=== PATIENT | female | born 1960 | race Hispanic/Latino ===

== ENCOUNTER 2018-02-06 10:39 | Day surgery (SDC) | payer OTHER ==
[2018-02-05 08:24] VITALS: BMI 38.4
[~2018-02-06 10:39] MED LIST: Cyclopentolate 1% Opth Drop 2 ML BOT FS SCH; EPINEPHrine 0.3 MG, Dextrose 50% 3 ML in Ophthalmic Irrigation Solution 500 ML FS SCH; Phenylephrine 2.5% Ophth Soln 5 ML BOT FS SCH
[2018-02-06] MEDS ORDERED: Phenylephrine 2.5% Ophth Soln 5 ML BOT ONE (10:59)
[2018-02-06] MEDS ORDERED: Cyclopentolate 1% Opth Drop 2 ML BOT ONE (10:59)
[2018-02-06] MEDS ORDERED: Lidocaine 4% PF 5 ML AMP ONE (11:14)
[2018-02-06] MEDS ORDERED: PROPOFOL 200 MG/20 ML VIAL ONE (11:14)
[2018-02-06] MEDS ORDERED: Bupivacaine 0.75% 10 ML AMP ONE (11:14)
[2018-02-06] MEDS ORDERED: Lidocaine 1% PF 5 ML VIAL ONE ×2 (11:14)
[2018-02-06] MEDS ORDERED: CEFAZOLIN 1 GM VIAL ONE (11:14)
[2018-02-06] MEDS ORDERED: Maxitrol 0.1% Opth Oint 3.5 GM TUBE ONE (11:14)
[2018-02-06] MEDS ORDERED: Triamcinolone 40 MG/ML VIAL ONE (11:14)
[2018-02-06] MEDS ORDERED: PROPOFOL 20 ML ONE (11:55)
[2018-02-06] MEDS ORDERED: Midazolam HCl 2 mg/2 ml Vial ONE (11:55)
[2018-02-06] MEDS ORDERED: Fentanyl 100 MCG/2 ML VIAL ONE (11:55)
--- NOTE | 2018-02-06 13:03 | OP ---
DATE OF PROCEDURE: 02/06/2018 PREOPERATIVE DIAGNOSES: Vitreous hemorrhage, epiretinal membrane, right eye. POSTOPERATIVE DIAGNOSES: Vitreous hemorrhage, epiretinal membrane, right eye. PROCEDURE: Pars plana vitrectomy and membrane peel. ANESTHESIA: Local with monitored anesthesia care. PROCEDURE IN DETAIL: The patient was identified in the preoperative holding area. Appropriate conse nt for the planned surgical procedure on the right eye had been obtained. The patient was transporte d to the operative suite. Appropriate cardiopulmonary monitoring established. Local anesthesia obta ined using retrobulbar and modified Van Lint lid block using 50/50 mixture of 4% lidocaine and 0.75% bupivacaine. The patient was prepped and draped in the usual sterile manner for ophthalmic surgery o n the right. Lid speculum was placed in the right eye. The 25-gauge trocars placed in conjunctiva a nd sclera supratemporally, inferotemporally and supranasally. Infusion line was placed inferotempora lly. Light pipe and vitreous cutter were inserted into the eye. Core vitrectomy was performed. Pro liferation was noted on the nerve. This was peeled using end-gripping forceps. No other areas of pr oliferation or detachment were identified. Panretinal photocoagulation was placed in all non-macular areas of the retina. Residual bleeding was removed. Trocars were removed and eye was noted to medhat in pressure well. Retrobulbar Kenalog and subconjunctival Ancef were placed. Atropine and antibioti c ointment placed and the eye was patched and shielded. The patient was taken to the postoperative r ecovery unit in good condition having suffered no immediate perioperative complications. DISCHARGE INSTRUCTIONS: The patient was instructed to keep patch and shield on, avoid lifting or ellie ding and follow up in the morning with Dr. Granado.
== END 2018-02-06 13:48 | disposition home or self-care (01) ==
LOC: SDC 10:39
PROVIDERS: ATTEND Ophthalmology Retina Specialist
DX: H43.11 Vitreous hemorrhage, right eye (principal); H35.371 Puckering of macula, right eye; E11.9 Type 2 diabetes mellitus without complications; Z79.82 Long term (current) use of aspirin; Z79.899 Other long term (current) drug therapy; Z79.4 Long term (current) use of insulin
CPT/HCPCS: 36416; J0171; J0690; J2001; J2250; J2704; J3010; J3301; J3490

== ENCOUNTER → 2018-08-28 | Day surgery (SDC) | payer OTHER ==
[2018-08-27 12:07] VITALS: BMI 38.4
[~2018-08-28] MED LIST changes: +Bupivacaine 0.75% 10 ML AMP ONE; +CEFAZOLIN 1 GM VIAL ONE; +Cyclopentolate 1% Opth Drop 2 ML BOT ONE; +Fentanyl 100 MCG/2 ML VIAL ONE; +Lidocaine 1% PF 5 ML VIAL ONE; +Lidocaine 4% PF 5 ML AMP ONE; +Maxitrol 0.1% Opth Oint 3.5 GM TUBE ONE; +Midazolam HCl 2 mg/2 ml Vial ONE; +PROPOFOL 20 ML ONE; +PROPOFOL 200 MG/20 ML VIAL ONE; +Phenylephrine 2.5% Ophth Soln 5 ML BOT ONE; +Triamcinolone 40 MG/ML VIAL ONE
--- NOTE | 2018-08-28 10:09 | OP ---
DATE OF PROCEDURE: 08/28/2018 PREOPERATIVE DIAGNOSIS: Glaucoma, right eye. POSTOPERATIVE DIAGNOSIS: Glaucoma, right eye. PROCEDURES PERFORMED: Pars plana vitrectomy, tube shunts, scleral patch graft, right eye. ANESTHESIA: Local with monitored anesthesia care. DESCRIPTION OF PROCEDURE: The patient was identified in the preoperative holding area. Appropriate informed consent for the planned surgical procedure on the right eye had been obtained. The patient was transported to the operative suite, where appropriate cardiopulmonary monitoring was established. Local anesthesia was obtained using retrobulbar modified Van Lint lid block using 50:50 mixture of 4% lidocaine and 0.75% bupivacaine. The patient was prepped and draped in the usual sterile manner for ophthalmic surgery on the right eye. Lid speculum was placed on the right eye. A 25-gauge trocar was placed through the conjunctivae and sclerae superotemporally, inferotemporally, and superonasally. The patient was identified in the preoperative holding area. Appropriate informed consent for the planned surgical procedure on the right eye had been obtained. The patient was transported to the operative suite, where appropriate cardiopulmonary monitoring was established. Local anesthesia was obtained using retrobulbar modified Van Lint lid block using 50:50 mixture of 4% lidocaine and 0.75% bupivacaine. The patient was prepped and draped in the usual sterile manner for ophthalmic surgery on the right eye. Lid speculum was placed on the right eye. A 25-gauge trocar was placed through the conjunctiva and sclera superotemporally, inferotemporally, and superonasally. An FP7 tube shunt was placed via conjunctiva peritomy superotemporally and fixated and placed with 5-0 Mersilene sutures. Tube was introduced 4.5 mm posterior to the limbus through a superior sclerotomy. Tutoplast was placed of the tube shunt entrance site, fixated and placed with 7-0 Vicryl suture. Conjunctivae were closed with 6-0 plain gut suture. Retrobulbar Kenalog and subconjunctival Ancef were placed. Antibiotic ointment was placed and the eye was patched and shielded. The patient was taken to the postoperative recovery unit in good condition, having suffered no immediate perioperative complications. The patient was instructed to keep patch and shield on, avoid lifting or bending. Followup appointment with Dr. Granado. Job ID: [id number]
== END ==
LOC: SDC 05:52
PROVIDERS: ATTEND Ophthalmology Retina Specialist
PROC: 08123J4 Bypass Right Anterior Chamber to Sclera with Synthetic Substitute, Percutaneous Approach (ICD-10-PCS; principal; 2018-08-28)
PROC: 08T43ZZ Resection of Right Vitreous, Percutaneous Approach (ICD-10-PCS; principal; 2018-08-28)
DX: H40.9 Unspecified glaucoma (principal)
CPT/HCPCS: 36416; J0171; J0690; J2001; J2250; J2704; J3010; J3301; J3490